=== PATIENT | female | born 1970 | race Caucasian/White ===

== ENCOUNTER 2020-12-29 16:27 | Outpatient (CLI) | payer BC | END 2020-12-29 16:28 | disposition home or self-care (01) | LOC: CSHLAB 16:27 | PROVIDERS: ATTEND Student in an Organized Health Care Education/Training Program | DX: Z01.812 Encounter for preprocedural laboratory examination (principal); Z20.822 Contact with and (suspected) exposure to COVID-19; N92.6 Irregular menstruation, unspecified; R10.2 Pelvic and perineal pain; N39.3 Stress incontinence (female) (male) | CPT/HCPCS: 84703; 85027; 86850; 86900; 86901; 87635; U0003; U0005 ==

== ENCOUNTER 2021-01-03 06:24 | Inpatient (IN) | payer BC ==
[2020-12-29 17:10] LABS: BHCG - Serum Negative (NEGATIVE); Pregs Control Background? CLEAR/WHITE (CLR/WHITE); Pregs Control Bar Appear? YES (CONTROL BAR)
[2020-12-29 17:14] LABS: Hemoglobin 12.2 g/dL (12.0-15.5); Mean Corpuscular HGB CONC 32.3 g/dL (32.0-36.0); Mean Corpuscular Hemoglobin 27.8 pg (27.0-33.0); Mean Corpuscular Volume 86.1 fl (81.6-98.3); Mean Platelet Volume 9.2 fl (7.4-10.4); Platelet Count 381 10x3/uL (150-450); RBC Distribution Width 12.6 % (11.5-14.5); Red Blood Cell (RBC) Count 4.39 10x6/uL (3.90-5.03); White Blood Cell (WBC) Count 8.7 10x3/uL (3.5-10.5)
[2020-12-30 02:15] LABS: SARS-CoV-2 PCR by NAA Not Detected (NotDetected)
[2020-12-30 13:54] VITALS: BMI 34.1
[~2021-01-03 06:24] MED LIST: CeleCOXIB 100 MG CAP ONE; Famotidine/PF 20 mg/2ml Vial ONE; Gabapentin 300 MG CAP ONE; Lidocaine 1% MPF 2 ML VIAL ONE
[2021-01-03] MEDS ORDERED: Bupivacaine PF 0.5% 30 ML VIAL ONE (06:56)
[2021-01-03] MEDS ORDERED: EPINEPHrine 1 MG/ML AMP ONE (06:56)
[2021-01-03] MEDS ORDERED: Scopolamine 1.5 mg/72 hour Patch ONE (07:15)
[2021-01-03] MEDS ORDERED: Midazolam HCl 2 mg/2 ml Vial ONE (07:15)
[2021-01-03] MEDS ORDERED: Lidocaine 2% Jelly 5 ML TUBE ONE (07:15)
[2021-01-03] MEDS ORDERED: PROPOFOL 20 ML ONE (07:19)
[2021-01-03] MEDS ORDERED: Rocuronium Bromide 10 MG/ML (10ML VIAL) ONE (07:20)
[2021-01-03] MEDS ORDERED: Lidocaine 1% PF 5 ML VIAL ONE (07:20)
[2021-01-03] MEDS ORDERED: Fentanyl 100 MCG/2 ML VIAL ONE (07:20)
[2021-01-03] MEDS ORDERED: Dexamethasone 20 MG/5 ML VIAL ONE (07:50)
[2021-01-03] MEDS ORDERED: Glycopyrrolate 0.2 MG/ML 5 ML SYRINGE ONE (07:59)
[2021-01-03] MEDS ORDERED: Lidocaine 1% w/Epinephrine 1:100K 20 ML VIAL ONE (08:57)
[2021-01-03] MEDS ORDERED: Ondansetron PF 4 MG/2 ML Vial ONE (09:29)
[2021-01-03] MEDS ORDERED: Promethazine HCl 25 MG/ML VIAL ONE (09:30)
[2021-01-03] MEDS ORDERED: Ondansetron PF 4 MG/2 ML Vial IVP PRN (10:18)
[2021-01-03] MEDS ORDERED: Fentanyl 100 MCG/2 ML VIAL SLOW IVP PRN (10:18)
[2021-01-03] MEDS ORDERED: Bisacodyl 10 MG SUPP PR PRN (10:18)
[2021-01-03] MEDS ORDERED: HYDROcodone/Acetaminophen 5/325 mg Tablet PO PRN ×2 (10:18)
[2021-01-03] MEDS ORDERED: Simethicone Chewable 80 MG TAB PO PRN (10:18)
[2021-01-03] MEDS ORDERED: diphenhydrAMINE 25 MG CAP PO PRN (10:18)
[2021-01-03] MEDS ORDERED: Promethazine HCl 25 MG/ML VIAL IM PRN (10:18)
[2021-01-03] MEDS: Ketorolac Tromethamine 30 MG/ML VIAL IVP SCH ×2 (14:25→21:45)
[2021-01-03] MEDS ORDERED: Escitalopram Oxalate 20 mg Tablet PO SCH (21:00)
[2021-01-03] MEDS ORDERED: Montelukast Sodium 10 mg Tablet PO SCH (21:00)
[2021-01-04] MEDS: Ketorolac Tromethamine 30 MG/ML VIAL IVP SCH (03:32)
[2021-01-04] MEDS: Ibuprofen 800 MG TAB PO SCH ×2 (06:21→14:52)
[2021-01-04 07:27] LABS: Mean Corpuscular HGB CONC 33.2 g/dL (32.0-36.0); Mean Corpuscular Hemoglobin 28.6 pg (27.0-33.0); Mean Corpuscular Volume 86.2 fl (81.6-98.3); Mean Platelet Volume 9.5 fl (7.4-10.4); Platelet Count 328 10x3/uL (150-450); RBC Distribution Width 13.1 % (11.5-14.5); Red Blood Cell (RBC) Count 3.84 10x6/uL (3.90-5.03); White Blood Cell (WBC) Count 14.2 10x3/uL (3.5-10.5)
[2021-01-04] MEDS ORDERED: Cholecalciferol 1,000 UNITS (25 MCG) TAB PO SCH (09:00)
[2021-01-04] MEDS ORDERED: Multivit, Therapeutic 1 TAB PO SCH (09:00)
[2021-01-04] MEDS ORDERED: Ascorbic Acid 500 mg Chewable Tablet PO SCH (09:00)
[2021-01-04] MEDS ORDERED: Calcium Carbonate 500 MG ChewTAB PO SCH (09:00)
[2021-01-04 12:06] VITALS: BP 122/64; TEMP 98.7
== END 2021-01-04 15:05 | disposition home or self-care (01) | DRG 743 ==
LOC: CSHSDC 06:24 → CSHPP 13:48
PROVIDERS: ADMIT Student in an Organized Health Care Education/Training Program; ATTEND Student in an Organized Health Care Education/Training Program
PROC: 0UT9FZZ Resection of Uterus, Via Natural or Artificial Opening With Percutaneous Endoscopic Assistance (ICD-10-PCS; principal; 2021-01-03)
PROC: 0UT7FZZ Resection of Bilateral Fallopian Tubes, Via Natural or Artificial Opening With Percutaneous Endoscopic Assistance (ICD-10-PCS; 2021-01-03)
PROC: 0JQC3ZZ Repair Pelvic Region Subcutaneous Tissue and Fascia, Percutaneous Approach (ICD-10-PCS; 2021-01-03)
PROC: 0T9B8ZZ Drainage of Bladder, Via Natural or Artificial Opening Endoscopic (ICD-10-PCS; 2021-01-03)
PROC: 8E0W4CZ Robotic Assisted Procedure of Trunk Region, Percutaneous Endoscopic Approach (ICD-10-PCS; 2021-01-03)
DX: N81.6 Rectocele (principal); N92.6 Irregular menstruation, unspecified; N39.3 Stress incontinence (female) (male); N93.9 Abnormal uterine and vaginal bleeding, unspecified; N80.9 Endometriosis, unspecified; Z20.822 Contact with and (suspected) exposure to COVID-19; F32.9 Major depressive disorder, single episode, unspecified; F41.9 Anxiety disorder, unspecified; Z87.891 Personal history of nicotine dependence
CPT/HCPCS: 36415; 84703; 85027; 86850; 86900; 86901; 87635; 88307; 88341; 88342; C1781; J0171; J0690; J1100; J1885; J2250; J2405; J2550; J2704; J3010; S0020; S0028; U0003; U0005